=== PATIENT | male | born 1995 ===

== ENCOUNTER 2019-05-03 22:40 | Emergency (ER) | payer MEDICAID ==
[~2019-05-03] VITALS: Ht 177.8 cm; Wt 88.3 kg
[2019-05-03 22:54] VITALS: BP 115/69
== END 2019-05-04 00:18 | disposition left against medical advice (07) ==
LOC: ER 22:42
DX: H57.12 Ocular pain, left eye (principal); H53.8 Other visual disturbances; Z53.21 Procedure and treatment not carried out due to patient leaving prior to being seen by health care provider; W21.07XA Struck by softball, initial encounter; Y93.64 Activity, baseball; Y92.89 Other specified places as the place of occurrence of the external cause; Y99.8 Other external cause status